=== PATIENT | female | born 1955 | race African-American/Black ===

== ENCOUNTER 2019-02-15 09:28 | Inpatient (IN) | payer MEDICAID ==
[~2019-02-15] VITALS: Ht 154.9 cm; Wt 88.7 kg
[2019-02-15] VITALS (12 sets, daily range): BP systolic 93–122; BP diastolic 35–94
[2019-02-15] MEDS ORDERED: HEPARIN SODIUM 1,000 UNIT/1ML VIAL IV ONE (10:00)
[2019-02-15] MEDS ORDERED: NITROGLYCERIN 50MCG/ML 10ML VIAL (CATH LAB) IV ONE (10:00)
[2019-02-15] MEDS ORDERED: NICARDIPINE 100MCG/ML 10ML VIAL (CATH LAB) IV ONE (10:00)
[2019-02-15] MEDS ORDERED: CYCL10TA7 PO (10:45)
[2019-02-15] MEDS ORDERED: IBUP-2029 MT (10:45)
[2019-02-15] MEDS ORDERED: SIMV40TA5 MT (10:45)
[2019-02-15] MEDS ORDERED: OMEP20CA10 MT (10:45)
[2019-02-15] MEDS ORDERED: LISI-604 MT (10:45)
[2019-02-15] MEDS ORDERED: DOCU-150 MT (10:45)
[2019-02-15] MEDS ORDERED: ASPI-1158 MT (10:45)
[2019-02-15] MEDS ORDERED: METO25TA6 MT (10:45)
[2019-02-15] MEDS ORDERED: IODIXANOL 320MG/ML 100 ML BOTTLE IV ONE ×3 (11:27→13:59)
[2019-02-15] MEDS ORDERED: LIDOCAINE HCL 1% 20ML VIAL (Pyxis) INJ ONE (11:28)
[2019-02-15 12:02] LABS: HEMATOCRIT 37.9 % (36.0-48.0); MEAN CORPUSCULAR HEMOGLOBIN 34.1 pg (28.0-32.0); MEAN CORPUSCULAR VOLUME 99.5 fL (81.0-99.0); PLATELET 192 x1000/uL (130-400); RED BLOOD CELL COUNT 3.81 mill/uL (4.2-5.4)
[2019-02-15 12:08] LABS: PARTIAL THROMBOPLASTIN TIME 26.5 sec (23.4-31.0); PROTHROMBIN TIME 10.2 sec (9.6-11.0)
[2019-02-15 12:14] LABS: CHLORIDE 110 mEq/L (98-107)
[2019-02-15] MEDS ORDERED: MIDAZOLAM HCL 2 MG/2 ML VIAL ONE ×2 (12:34→13:21)
[2019-02-15] MEDS ORDERED: FENTANYL CITRATE/PF 50MCG/ML 2ML VIAL ONE ×2 (12:35→13:21)
[2019-02-15] MEDS ORDERED: IOHEXOL-300 100 ML BOTTLE ONE (13:42)
[2019-02-15] MEDS ORDERED: HYDROMORPHONE HCL/PF 2MG/ML (OR) ONE (14:00)
[2019-02-15] MEDS ORDERED: ONDANSETRON HCL 4MG/2ML INJ IV PRN (14:15)
[2019-02-15] MEDS ORDERED: CLOPIDOGREL 75MG TABLET PO NR (14:15)
[2019-02-15] MEDS ORDERED: MORPHINE SULFATE 4 MG/ML CPJ (NOT FOR IM USE) IV PRN (14:15)
[2019-02-15] MEDS ORDERED: ACETAMINOPHEN 325MG TABLET PO PRN (14:15)
[2019-02-15] MEDS ORDERED: ATROPINE SULFATE 1MG/10ML SYR IV PRN (14:15)
[2019-02-15] MEDS ORDERED: SODIUM CHLORIDE 0.45% 1,000 ML IV NR (15:30)
[2019-02-15] MEDS ORDERED: CLOPIDOGREL 75MG TABLET ONE (16:29)
[2019-02-15] MEDS: SODIUM CHLORIDE 0.9% 1,000 ML IV SCH (22:00)
[2019-02-15] MEDS ORDERED: ATORVASTATIN CALCIUM 20MG TABLET PO SCH (22:30)
[2019-02-15] MEDS: SODIUM CHLORIDE 0.9% INJ 3ML FLUSH IVF SCH (22:45)
[2019-02-16] VITALS (12 sets, daily range): BP systolic 90–114; BP diastolic 58–87
[2019-02-16] MEDS: MORPHINE SULFATE 4 MG/ML CPJ (NOT FOR IM USE) IV PRN ×2 (00:06→08:29)
[2019-02-16] MEDS: SODIUM CHLORIDE 0.9% 1,000 ML IV SCH (06:00)
[2019-02-16 06:10] LABS: BASOPHILS % 0.5 % (0.0-2.0); EOSINOPHILS % 1.9 % (0.0-5.0); HEMATOCRIT. 35.6 % (36.0-48.0); HEMOGLOBIN. 12.2 g/dL (12.0-16.0); LYMPHOCYTES % 23.2 % (20.0-50.0); MEAN CORPUSCULAR VOLUME 99.2 fL (81.0-99.0); MEAN PLATELET VOLUME 8.9 fl (7.4-10.4); MONOCYTES % 9.3 % (2.0-8.0); NEUTROPHILS % 65.1 % (40.0-76.0); PLATELET 198 x1000/uL (130-400); RED BLOOD CELL COUNT 3.59 mill/uL (4.2-5.4); RED CELL DISTRIBUTION WIDTH 13.7 % (11.6-14.6)
[2019-02-16 06:13] LABS: CHLORIDE 108 mEq/L (98-107)
[2019-02-16] MEDS: SODIUM CHLORIDE 0.9% INJ 3ML FLUSH IVF SCH (06:36)
[2019-02-16] MEDS ORDERED: CLOPIDOGREL 75MG TABLET PO SCH (09:00)
[2019-02-16] MEDS ORDERED: ASPIRIN 325MG TABLET PO SCH (09:00)
== END 2019-02-16 15:35 | disposition home or self-care (01) | DRG 175 ==
LOC: CCL 09:28 → 3WST 09:29
PROVIDERS: ADMIT Internal Medicine Cardiovascular Disease; ATTEND Internal Medicine Cardiovascular Disease
PROC: 027034Z Dilation of Coronary Artery, One Artery with Drug-eluting Intraluminal Device, Percutaneous Approach (ICD-10-PCS; principal; 2019-02-15)
PROC: 4A023N7 Measurement of Cardiac Sampling and Pressure, Left Heart, Percutaneous Approach (ICD-10-PCS; 2019-02-15)
PROC: B2111ZZ Fluoroscopy of Multiple Coronary Arteries using Low Osmolar Contrast (ICD-10-PCS; 2019-02-15)
PROC: B2151ZZ Fluoroscopy of Left Heart using Low Osmolar Contrast (ICD-10-PCS; 2019-02-15)
PROC: 4A033BC Measurement of Arterial Pressure, Coronary, Percutaneous Approach (ICD-10-PCS; 2019-02-15)
DX: I25.10 Atherosclerotic heart disease of native coronary artery without angina pectoris (principal); I25.82 Chronic total occlusion of coronary artery; E78.5 Hyperlipidemia, unspecified; F17.200 Nicotine dependence, unspecified, uncomplicated; I10 Essential (primary) hypertension; I25.2 Old myocardial infarction; Z80.0 Family history of malignant neoplasm of digestive organs; Z82.3 Family history of stroke
CPT/HCPCS: 36415; 80048; 85027; 85347; 92928; 93005; 93458; 93571; C1725; C1760; C1769; C1874; C1887; C1893; J1170; J1644; J2250; J2270; J3010; J3490; J7030; Q9967